=== PATIENT | female | born 1990 | race African-American/Black ===

== ENCOUNTER 2017-11-05 19:57 | Emergency (ER) | payer BC, MEDICAID ==
--- NOTE | 2017-11-05 21:04 | ER Document Report ---
ED GI/ - General Chief Complaint: Abdominal Pain Stated Complaint: ABDOMINAL PAIN Time Seen by Provider: 11/05/17 20:49 Notes: Patient is 27-year-old female comes emergency department for chief complaint of lower abdominal pain for the past 4 days, intermittent but worsening, she states she vomited once today, she feels some vague radiation to her lower back on both sides, she reports some dysuria. She denies vaginal bleeding or any obvious discharge. She denies fever or chills. She reports normal bowel movements. She denies any surgeries, daily medications, or any medical history. She is sexually active with her boyfriend. TRAVEL OUTSIDE OF THE [place] IN LAST 30 DAYS: No - Related Data Allergies/Adverse Reactions: No Known Allergies Allergy (Verified 11/05/17 19:57) Past Medical History - General Information source: Patient - Social History Smoking Status: Never Smoker Frequency of alcohol use: None Lives with: Family Family History: Reviewed & Not Pertinent Patient has suicidal ideation: No Patient has homicidal ideation: No - Medical History Medical History: Negative Renal/ Medical History: Denies: Hx Peritoneal Dialysis Surgical Hx: Negative - Immunizations Immunizations up to date: Yes Hx Diphtheria, Pertussis, Tetanus Vaccination: Yes Review of Systems - Review of Systems Constitutional: No symptoms reported EENT: No symptoms reported Cardiovascular: No symptoms reported Respiratory: No symptoms reported Gastrointestinal: See HPI Genitourinary: See HPI Female Genitourinary: See HPI Musculoskeletal: No symptoms reported Skin: No symptoms reported Hematologic/Lymphatic: No symptoms reported Neurological/Psychological: No symptoms reported Physical Exam - Vital signs Vitals: Temp Pulse Resp BP Pulse Ox 98.0 F 57 L 14 145/87 H 100 11/05/17 20:04 11/05/17 20:04 11/05/17 20:04 11/05/17 20:04 11/05/17 20:04 Interpretation: Normal - General General appearance: Appears well In distress: None - HEENT Head: Normocephalic, Atraumatic Eyes: Normal Pupils: PERRL - Respiratory Respiratory status: No respiratory distress Chest status: Nontender Breath sounds: Normal Chest palpation: Normal - Cardiovascular Rhythm: Regular Heart sounds: Normal auscultation Murmur: No - Abdominal Inspection: Normal Distension: No distension Bowel sounds: Normal Tenderness: Tender - Mild generalized suprapubic and pelvic tenderness, no guarding, no rigidity, upper abdomen is benign Organomegaly: No organomegaly - Genitourinary External exam: Normal Speculum exam: Normal, Cervix closed, Vaginal discharge - Minimal. No: Cervix open Bimanuel exam: Normal. No: Cervical motion tender Notes: Franny PCT present during exam - Back Back: Normal, Nontender. No: CVA tenderness - Extremities General upper extremity: Normal inspection, Nontender, Normal color, Normal ROM , Normal temperature General lower extremity: Normal inspection, Nontender, Normal color, Normal ROM , Normal temperature, Normal weight bearing. No: Tim's sign - Neurological Neuro grossly intact: Yes Cognition: Normal Orientation: AAOx4 Anju Coma Scale Eye Opening: Spontaneous [place] Coma Scale Verbal: Oriented [place] Coma Scale Motor: Obeys Commands Anju Coma Scale Total: 15 Speech: Normal Motor strength normal: LUE, RUE, LLE, RLE Sensory: Normal - Psychological Associated symptoms: Normal affect, Normal mood - Skin Skin Temperature: Warm Skin Moisture: Dry Skin Color: Normal Course - Re-evaluation Re-evalutation: Mild lower abdominal and suprapubic tenderness on exam, otherwise unremarkable abdomen. CBC unremarkable, chemistry unremarkable, pelvic examination and wet mount are unremarkable, gonorrhea and chlamydia and still pending but I do not suspect this based on her exam and workup to this point. Urine does suggest urinary tract infection, patient has suprapubic tenderness, patient has symptoms suggestive of urinary tract infection. Treated with Pyridium, Keflex, discussed follow-up and return precautions, patient states understanding and agreement. - Vital Signs Vital signs: Temp Pulse Resp BP Pulse Ox 97.9 F 56 L 16 140/81 H 100 11/05/17 22:45 11/05/17 22:45 11/05/17 22:45 11/05/17 22:45 11/05/17 22:45 - Laboratory Result Diagrams: 11/05/17 21:25 11/05/17 21:25 Laboratory results interpreted by me: 11/05/17 11/05/17 11/05/17 21:10 21:25 21:25 Hgb 11.9 L Sodium 145.8 H Chloride 108 H Urine Blood SMALL H Urine Urobilinogen 2.0 H Ur Leukocyte Esterase TRACE H Discharge - Discharge Clinical Impression: Lower abdominal pain, Dysuria Condition: Stable Disposition: HOME, SELF-CARE Additional Instructions: We are treating you for a bladder infection. Take the Keflex as prescribed to completion. Take the Pyridium if needed for your symptoms of pain. Consider [id number] stool softener such as MiraLAX or Colace if needed as well. Follow-up with primary care. Return if you worsen including vomiting, fever of 100.4 or greater, increased pain, or any other concerning symptoms. Prescriptions: Cephalexin Monohydrate [Keflex 500 mg Capsule] 500 mg PO QID #20 capsule Phenazopyridine HCl [Pyridium 100 Mg Tablet] 200 mg PO TID PRN #12 tablet PRN Reason: Forms: Return to Work, Elevated Blood Pressure Referrals: ALEX GANDHI MD [Primary Care Provider] - Follow up as needed
[2017-11-05 21:31] LABS: AMORPHOUS SEDIMENT,URINE TRACE /HPF; APPEARANCE,URINE SLIGHTLY-CLOUDY; BILIRUBIN,URINE NEGATIVE (NEGATIVE); COLOR,URINE YELLOW; GLUCOSE, URINE NEGATIVE (NEGATIVE); KETONES,URINE NEGATIVE (NEGATIVE); LEUKOCYTE ESTERASE,URINE TRACE (NEGATIVE); NITRITE,URINE NEGATIVE (NEGATIVE); PROTEIN,URINE NEGATIVE (NEGATIVE); URINE SPECIFIC GRAVITY 1.014
[2017-11-05 21:42] LABS: ABSOLUTE BASOPHILS # (AUTO) 0.1 10^3/uL (0.0-0.2); ABSOLUTE EOSINOPHILS # (AUTO) 0.1 10^3/uL (0.0-0.6); ABSOLUTE LYMPHOCYTES (AUTO) 3.1 10^3/uL (0.5-4.7); ABSOLUTE MONOCYTES (AUTO) 0.4 10^3/uL (0.1-1.4); ABSOLUTE NEUT (AUTO) 4.3 10^3/uL (1.7-8.2); BASOPHILS % (AUTO) 0.7 % (0-2); EOSINOPHILS % (AUTO) 1.1 % (0-6); HEMOGLOBIN 11.9 g/dL (12.0-15.5); LYMPHOCYTES % (AUTO) 39.1 % (13-45); MEAN CORPUSCULAR HEMOGLOBIN 29.1 pg (27.0-33.4); MEAN CORPUSCULAR HGB CONC 32.3 g/dL (32.0-36.0); MEAN CORPUSCULAR VOLUME 90 fl (80-97); PLATELET COUNT 326 10^3/uL (150-450); RED CELL DISTRIBUTION WIDTH 12.9 % (11.5-14.0); SEGMENTED NEUTROPHILS % (AUTO) 54.1 % (42-78); TOTAL CELLS COUNTED % (AUTO) 100 %; WHITE BLOOD COUNT 7.9 10^3/uL (4.0-10.5)
[2017-11-05 21:57] LABS: EPITHELIALS (WET MOUNT) 3+ EPITHELIALS SEEN; RBCS (WET MOUNT) NO RBCS SEEN; T.VAGINALIS (WET MOUNT) NO TRICHOMONAS SEEN; WBCS (WET MOUNT) NO WBCS SEEN; YEAST (WET MOUNT) NO YEAST SEEN
[2017-11-05 22:01] LABS: ANION GAP 10 (5-19); BLOOD UREA NITROGEN 11 mg/dL (7-20); CALCIUM 9.7 mg/dL (8.4-10.2); CARBON DIOXIDE 28 mmol/L (22-30); CHLORIDE 108 mmol/L (98-107); GLUCOSE 89 mg/dL (75-110); POTASSIUM 4.1 mmol/L (3.6-5.0); SODIUM 145.8 mmol/L (137-145)
[2017-11-05] MEDS ORDERED: CEPHALEXIN 500 MG CAPSULE PO ONE (22:32)
[2017-11-05] MEDS ORDERED: PHENAZOPYRIDINE HCL 200 MG TABLET PO ONE (22:32)
[2017-11-05 22:59] VITALS: BP 140/81
[2017-11-05 23:25] LABS: CHLAM PCR NOT DETECTED (NOT DETECT); GON PCR NOT DETECTED (NOT DETECT)
== END 2017-11-05 22:50 | disposition home or self-care (01) ==
LOC: ER 19:57
DX: R10.30 Lower abdominal pain, unspecified (principal); R30.0 Dysuria; M54.5 Low back pain
CPT/HCPCS: 99284; 36415; 87210; 85025; 81025; 80048; 81001; 87491; 87591; J3490